=== PATIENT | female | born 1965 | race Caucasian/White ===

== ENCOUNTER 2017-11-19 08:10 | Day surgery (SDC) | payer MEDICARE, MEDICAID ==
[2017-11-19] VITALS (17 sets, daily range): BP systolic 69–92; BP diastolic 29–58
[~2017-11-19] VITALS: Ht 175.3 cm; Wt 77.4 kg
[~2017-11-19 08:10] MED LIST: ACET-2119 PO; CALC667T2 PO; CINA30TA PO; FA/V1TAB PO; FOLI1TAB16 PO; HYDR-569 PO; LEVO25TA2 PO; LIDOcaine 1% 30ml vial IJ STA; OMEP-84 PO; SEVE800T8 PO
[2017-11-19] MEDS ORDERED: albumin (human) 25% 100 ML IV solution IV PRN (08:35)
[2017-11-19] MEDS ORDERED: normal saline 1000ml 1,000 ML IV PRN (08:35)
== END 2017-11-19 13:25 | disposition home or self-care (01) ==
LOC: SSTAY O 08:10
PROVIDERS: ATTEND Radiology Diagnostic Radiology
DX: R18.8 Other ascites (principal); I13.2 Hypertensive heart and chronic kidney disease with heart failure and with stage 5 chronic kidney disease, or end stage renal disease; N18.6 End stage renal disease; I50.9 Heart failure, unspecified; I48.0 Paroxysmal atrial fibrillation; J44.9 Chronic obstructive pulmonary disease, unspecified; K21.9 Gastro-esophageal reflux disease without esophagitis; F17.210 Nicotine dependence, cigarettes, uncomplicated; Z79.82 Long term (current) use of aspirin; Z88.2 Allergy status to sulfonamides; Z98.890 Other specified postprocedural states; Z90.89 Acquired absence of other organs; Z79.899 Other long term (current) drug therapy; E03.8 Other specified hypothyroidism
CPT/HCPCS: 49083; A6257; J3490; J7030; P9047

== ENCOUNTER → 2017-11-25 | Emergency (ER) | payer MEDICARE, MEDICAID ==
[~2017-11-25] VITALS: Ht 175.3 cm; Wt 72.0 kg
[~2017-11-25] MED LIST changes: -LIDOcaine 1% 30ml vial IJ STA; +potassium Cl oral solution 20 MEQ/15 ML PO ONE
[2017-11-25 14:37] LABS: BASOPHILS # (AUTO) 0.1 X10'3 (0-0.2); BASOPHILS % (AUTO) 1.2 % (0-1); EOSINOPHILS # (AUTO) 0.1 X10'3 (0-0.9); EOSINOPHILS % (AUTO) 1.8 % (0-6); HEMATOCRIT 28.7 % (35.0-45.0); HEMOGLOBIN 9.6 g/dl (12.0-16.0); LYMPHOCYTES # (AUTO) 1.7 X10'3 (1.1-4.8); MEAN CORPUSCULAR HEMOGLOBIN 38.2 PG (27.0-31.0); MEAN CORPUSCULAR HGB CONC 33.3 % (33.0-36.5); MEAN CORPUSCULAR VOLUME 114.6 FL (78-98); MEAN PLATELET VOLUME 7.2 FL (7.4-10.4); MONOCYTES # (AUTO) 0.4 X10'3 (0-0.9); MONOCYTES % (AUTO) 5.4 % (2-12); NEUTROPHILS # (AUTO) 5.6 X10'3 (1.8-7.7); NEUTROPHILS % (AUTO) 70.6 % (42-75); PLATELET COUNT 137 X10'3 (140-440); RED BLOOD COUNT 2.51 X10'6 (4.20-5.60); RED CELL DISTRIBUTION WIDTH 17.9 % (11.5-14.5)
[2017-11-25 14:40] LABS: ALANINE AMINOTRANSFERASE 19 U/L (12-78); ALBUMIN 1.3 G/DL (3.4-5.0); ALBUMIN/GLOBULIN RATIO 0.4 (1.1-1.5); ALKALINE PHOSPHATASE 156 IU/L (46-116); ANION GAP 7 (8-16); ASPARTATE AMINO TRANSFERASE 35 U/L (10-37); BILIRUBIN,TOTAL 0.3 MG/DL (0.1-1.0); BLOOD UREA NITROGEN 20 MG/DL (7-18); BUN/CREATININE RATIO 5.6 (6.6-38.0); CALCIUM 7.1 MG/DL (8.5-10.1); CHLORIDE 98 MMOL/L (99-107); GLUCOSE 84 MG/DL (70-104); SODIUM 137 MMOL/L (135-145); TOTAL CARBON DIOXIDE 32.4 MMOL/L (24-32); TOTAL PROTEIN 4.6 G/DL (6.4-8.2); eGFR 13 ML/MIN
[2017-11-25 14:46] LABS: POTASSIUM 2.6 MMOL/L (3.5-5.1)
[2017-11-25 15:25] LABS: PLATELET ESTIMATE DECREASED
[2017-11-25 15:29] LABS: POLYCHROMASIA 1+
[2017-11-25 15:30] LABS: ANISOCYTOSIS 2+; SCHISTOCYTES FEW; STOMATOCYTES 2+
[2017-11-25 16:16] VITALS: BP 90/50
== END | disposition home or self-care (01) ==
LOC: ER 13:56
DX: E87.6 Hypokalemia (principal); N18.9 Chronic kidney disease, unspecified; J44.9 Chronic obstructive pulmonary disease, unspecified; E03.9 Hypothyroidism, unspecified; I48.91 Unspecified atrial fibrillation; Z85.41 Personal history of malignant neoplasm of cervix uteri; Z88.2 Allergy status to sulfonamides; Z88.1 Allergy status to other antibiotic agents; Z99.2 Dependence on renal dialysis
CPT/HCPCS: 36415; 71045; 80053; 85025; 99285